=== PATIENT | female | born 1990 | race Hispanic/Latino ===

== ENCOUNTER → 2024-06-21 | Outpatient (CLI) | payer BC ==
--- NOTE | 2024-06-21 10:41 | HMCIMG ---
UPPER GI TRACT, WO KUB REASON: MORBID (SEVERE)OBESITY DUE TO EXCESS CALORIES COMPARISON: None TECHNIQUE: Air contrast upper GI was performed with fluoroscopic observation. Fluoroscopy time was 0.6 minutes. 7 short cine sequences were acquired. FINDINGS: There is normal esophageal peristalsis. There is no mass, ulcer or obstructing lesion. There is no hiatal hernia. There was moderate reflux during the exam, to the thoracic inlet, but without distention of the lower esophageal segment. Stomach appears normal. There is no mass, ulcer or obstructing lesion. Duodenal C-loop appears unremarkable. Surrounding soft tissues appear normal. IMPRESSION: 1. Moderate intermittent gastroesophageal reflux. 2. Otherwise normal air contrast upper GI.
== END | disposition home or self-care (01) ==
LOC: RAH 08:39
PROVIDERS: ATTEND Surgery
DX: K21.9 Gastro-esophageal reflux disease without esophagitis (principal); E66.01 Morbid (severe) obesity due to excess calories
CPT/HCPCS: 74240